=== PATIENT | female | born 1995 | race Caucasian/White ===

== ENCOUNTER 2020-06-12 19:15 | Outpatient (CLI) | payer MEDICAID ==
--- NOTE | 2020-06-13 00:22 | Ultrasound Report ---
PROCEDURE: OB F/U or Repeat INDICATIONS: EVAL SPINE OUTSIDE/PRIOR DATING DATA: Last menstrual period (LMP): 10/20/2019. LMP-based estimated date of delivery ([place]): 07/26/2020. First dating scan (date and location): 12/12/2019. Estimated date of delivery ([place]) from first dating scan: 07/17/2020. TECHNIQUE: Real-time scanning was performed of the fetus, with image documentation and biometric measurements. Endovaginal scanning: Not performed. COMPARISON: None. FINDINGS: General: A single living intrauterine gestation is present. Presentation: Cephalic Placenta: Placental position is posterior, without previa. Amniotic fluid index: 19.2 cm, normal for gestational age. heart rate: 157 beats per minute. Maternal cervical canal: 4.8 cm long; normal length is 2.5 cm or more. biometrics: Biparietal diameter: 9.4 cm, 38 weeks 3 days Head circumference: 33.3 cm, 38 weeks 0 days Abdominal circumference: 33.1 cm, 37 weeks 1 day Femur length: 6.8 cm, 34 weeks 6 days Estimated gestational age from initial scan: 35 weeks 0 days. Composite gestational age from present scan: 37 weeks 1 day Estimated weight and percentile: 3036 g, 90th percentile Measurement variability in biometric dating: +/- 10 days from 12-20 weeks gestation, +/- 2 weeks from 20-30 weeks gestation, +/- 3 weeks at 30 weeks gestation or more. Other: Limited evaluation of the spine was performed, which appeared normal. No meningocele is identified. IMPRESSION: 1. Single live intrauterine . Gestational age is consistent with dates. Estimated weig ht is at the 90th percentile for gestational age. 2. Limited anatomic evaluation of the spine is normal. No meningocele is seen. Reviewed by: Gary Mayer MD on 06/13/2020 12:20 AM PDT Approved by: Gary Mayer MD on 06/13/2020 12:20 AM PDT Station ID: [id number]
== END 2020-06-12 19:16 | disposition home or self-care (01) ==
LOC: DI 19:15
PROVIDERS: ATTEND Obstetrics & Gynecology
DX: Z36.89 Encounter for other specified antenatal screening (principal)
CPT/HCPCS: 76816

== ENCOUNTER 2020-07-03 07:00 | Outpatient (CLI) | payer MEDICAID ==
[2020-07-03 19:35] LABS: TRICHOMONAS VAGINALIS DNA NEGATIVE (NEGATIVE)
== END 2020-07-03 23:59 | disposition home or self-care (01) ==
LOC: LAB.R 07:00
PROVIDERS: ATTEND Nurse Practitioner Obstetrics & Gynecology
DX: Z36.85 Encounter for antenatal screening for Streptococcus B (principal)
CPT/HCPCS: 87491; 87591; 87661; 87797

== ENCOUNTER 2020-07-15 07:30 | Inpatient (IN) | payer MEDICAID ==
[2020-07-15] MEDS ORDERED: fentaNYL 100 MCG/2 ML VIAL IVP PRN (08:39)
[2020-07-15] MEDS ORDERED: LIDOCAINE-MPF 1% 30 ML VIAL ID PRN (08:39)
[2020-07-15] MEDS ORDERED: TRANEXAMIC ACID 1,000 MG in SODIUM CHLORIDE 0.9% 100ML 100 ML IV PRN (08:39)
[2020-07-15] MEDS ORDERED: CARBOPROST TROMETHAMINE 250 MCG/ML AMP IM PRN (08:39)
[2020-07-15] MEDS ORDERED: METHYLERGONOVINE 0.2 MG/ML VIAL IM PRN (08:39)
[2020-07-15] MEDS ORDERED: OXYTOCIN/SODIUM CHLORIDE 500 ML IV PRN (08:39)
[2020-07-15] MEDS ORDERED: SODIUM CHLORIDE FLUSH 0.9% 10 ML SYRINGE IVP PRN (08:39)
[2020-07-15] MEDS ORDERED: miSOPROStoL 200 MCG TABLET BC PRN (08:39)
[2020-07-15] MEDS ORDERED: OXYTOCIN 10 UNIT/ML VIAL IM PRN (08:39)
[2020-07-15] MEDS ORDERED: SODIUM CHLORIDE FLUSH 0.9% 10 ML SYRINGE IVP SCH (09:00)
--- NOTE | 2020-07-15 09:11 | HISTORY & PHYSICAL EXAMINATION ---
Admit History - Visit Reason Visit Reason: Contractions, Membranes rupture - : 3 Parity: 2 Premature: 1 Ectopic: 0 : 0 Care: positive: [facility] Risk/History: positive: None Complications This : positive: None Smoking Status: Never smoker - Mother's Labs Mother's Blood Type: positive: O Mother's RH: positive: Positive GBS: positive: Group B Step Negative Rubella Status: positive: Immune - Other Maternal History Other Maternal History: 25yo at 39.5 wks gestation who presents to Labor and Delivery for for complaints of contractions following a loss of clear fluid at 0440 Reports movement Denies VB care with [facility] which has been scant Complications *Total of 6 visits *Chlamydia- positive this . Treated. Negative ASH. Dating Criteria *8.6wk US OB Hx *G1: 35.2wks Boy. 2772g *G2: 38.2wks Girl. 2846g *G3: Current Medications * vitamin-daily *Ferrous sulfate- 325mg daily *Albuterol Nebulizer- PRN Allergies *Amoxicillin- mild (cough) *OtheroEvra- moderate (itchy) *Estradiol- moderate (itchy) Medical History *Asthma Surgical History *None Family History *Non contributory Social History *Non contributory Labs, Immunizations, and Findings Initial U/S: 12/12/2019 @ 8.6wks gestation dates Hx secondary to PPROM @ 35wks. second @ 37wks O pos/Rubella immune +chlamydia first trimester; ASH negative, 36wk neg Genetic testing: declined FAS: normal except spine views incomplete. Posterior placenta, no previa. 06/14/2020 f/u WNL. Glucola -pt refused TDAP declined GBS & GC/CT NEG x 3 HSV: denies Breast pump Rx MOD: Anticipate ; Expecting GIRL - [place]; desires epidural for pain management pp contraception: tubal ligation papers signed 05/20/2020 pap: needs pp SVE deferred r/t SROM status Nitrizine paper perfromed by RN- POSITIVE Vertex by BSUS EFW by dima's- 7# FHTs as above Assessment *Restate STATUS *Active Labor *SROM- clear * Heart Tones- Category I Plan *Admit to Labor and Delivery *Monitoring- Continuous *Comfort measures available- position changes, whirlpool tub, fentanyl, and epidural per maternal preference *Diet/Activity- per maternal preference *Anticipate Meds/Allgy - Allergies Allergies/Adverse Reactions: Allergies Allergy/AdvReac Type Severity Reaction Status Date / Time amoxicillin Allergy Unknown Verified 07/15/20 13:18 Review of Systems - All Other Systems All Other Systems: reports: Reviewed and negative Physical - Abdominal Exam Vital Signs: Temp Pulse Resp BP Pulse Ox 36.8 C 83 20 131/74 H 07/15/20 07:47 07/15/20 07:47 07/15/20 07:47 07/15/20 07:47 Contraction Frequency (min/apart): 2-4 Contraction Intensity: positive: Moderate Uterine Resting Tone: positive: Soft - Monitoring Heart Rate Baseline: 135 Strip Review: positive: Category I - Presentation Presentation: positive: Vertex - Vaginal Exam Membranes: positive: Membranes ruptured - Speculum Exam Findings: positive: Gross leak, Nitrazine Plan for Labor - Plan For Labor I expect patient to be DC'd or transferred within 96 hours.: Yes
[2020-07-15] MEDS: LACTATED RINGERS 1,000 ML IV SCH ×2 (09:23→12:18)
[2020-07-15 09:33] LABS: BASOPHILS % (AUTO) 0.2 %; EOSINOPHILS % (AUTO) 0.3 %; HGB - HEMOGLOBIN 10.9 g/dL (12.0-16.0); LYMPHOCYTES # (AUTO) 1.4 10^3/uL (1.5-3.5); MEAN CORPUSCULAR HEMOGLOBIN 30.9 pg (27.0-31.0); MEAN CORPUSCULAR HGB CONC 33.9 g/dL (32.0-36.0); MEAN CORPUSCULAR VOLUME 91.2 fL (81.0-99.0); MEAN PLATELET VOLUME 10.2 fL (7.9-10.8); MONOCYTES # (AUTO) 0.6 10^3/uL (0.0-1.0); MONOCYTES % (AUTO) 6.8 %; NEUTROPHILS # (AUTO) 6.8 10^3/uL (1.5-6.6); NEUTROPHILS % (AUTO) 76.3 %; PLT - PLATELET COUNT 196 10^3/uL (130-450); RED BLOOD COUNT 3.53 10^6/uL (4.20-5.40); RED CELL DISTRIBUTION WIDTH 12.2 % (12.0-15.0)
[2020-07-15] MEDS ORDERED: ROPIVACAINE 0.2% 200 MG/100 ML BAG EP ONE (09:47)
[2020-07-15] MEDS ORDERED: METOCLOPRAMIDE 10 MG/2 ML VIAL IVP PRN (10:12)
[2020-07-15] MEDS ORDERED: NALBUPHINE 10 MG/ML AMP IVP PRN (10:12)
[2020-07-15] MEDS ORDERED: diphenhydrAMINE INJ 50 MG/ML VIAL IVP PRN (10:12)
[2020-07-15] MEDS ORDERED: ROPIVACAINE 0.2% 200 MG/100 ML BAG EP PRN (10:12)
[2020-07-15] MEDS ORDERED: ONDANSETRON 4 MG/2 ML VIAL IVP PRN (10:12)
[2020-07-15] MEDS ORDERED: ePHEDrine 50 MG/ML VIAL IVP PRN (10:12)
[2020-07-15] MEDS ORDERED: NALOXONE 0.4 MG/ML VIAL IVP PRN (10:12)
--- NOTE | 2020-07-15 10:14 | ANESTHESIA ---
Pre-Anesthesia VS, & Labs - Diagnosis term labor, IUP - Procedure Labor epidural Vital Signs: Temp Pulse Resp BP Pulse Ox 36.8 C 83 20 131/74 H 07/15/20 07:47 07/15/20 07:47 07/15/20 07:47 07/15/20 07:47 Height: 5 ft 2 in Weight (kg): 79.832 kg Body Mass Index: 32.1 BMI Classification: Obese - NPO Last Food Intake: t/o morning - Is Patient ?: Yes - Lab Results Current Lab Results: Laboratory Tests 07/15/20 08:55: WBC 9.0, RBC 3.53 L, Hgb 10.9 L, Hct 32.2 L, MCV 91.2, MCH 30.9, MCHC 33.9, RDW 12.2, Plt Count 196, MPV 10.2, Neut # (Auto) 6.8 H, Lymph # (Auto) 1.4 L, [place] # (Auto) 0.6, Eos # (Auto) 0.0, Baso # (Auto) 0.0, Absolute Nucleated RBC 0.00, Nucleated RBC % 0.0 Lab results reviewed: Yes Fish Bones: 07/15/20 08:55 Home Medications and Allergies Active Medications Acetaminophen (Tylenol) 650 mg PO Q6H [facility] Carboprost Tromethamine (Hemabate) 250 mcg IM Q15M PRN PRN Reason: Step 4: Hemorrhage protocol Stop: 07/20/20 08:39 Fentanyl (Fentanyl) 50 mcg IVP Q1H PRN PRN Reason: PAIN Lactated Ringer's (Lr) 1,000 mls @ 150 mls/hr IV .Q6H40M [facility] Last Admin: 07/15/20 09:23 Dose: 999 mls/hr Documented by: Oxytocin/Sodium Chloride (Pitocin/Sodium Chloride) 500 mls @ 999 mls/hr IV PRN PRN; Protocol PRN Reason: POST- HEMORR PREVENTION Stop: 07/20/20 08:39 Tranexamic Acid 1,000 mg/ (Sodium Chloride) 110 mls @ 660 mls/hr IV .ONCE PRN PRN Reason: EBL >1200mL and within 3hr Stop: 07/20/20 08:39 Lidocaine HCl (Xylocaine-Mpf 1% Vial) 30 ml ID .ONCE PRN PRN Reason: PERINEAL REPAIR Stop: 07/20/20 08:39 Methylergonovine Maleate (Methergine Inj) 0.2 mg IM .ONCE PRN PRN Reason: Step 2: Hemorrhage protocol Stop: 07/20/20 08:39 Misoprostol (Cytotec) 800 mcg BC .ONCE PRN PRN Reason: Step 3: Hemorrhage protocol Stop: 07/20/20 08:39 Oxytocin (Pitocin) 10 unit IM .ONCE PRN PRN Reason: Step one: If no IV access Stop: 07/20/20 08:39 Sodium Chloride (Normal Saline Flush 0.9%) 10 ml IVP PRN PRN PRN Reason: NEEDED PER PROVIDER ORDERS Sodium Chloride (Normal Saline Flush 0.9%) 10 ml IVP 0100,0900,1700 VERONICA Anes History & Medical History - Anesthetic History Anesthesia Complications: reports: No previous complications Family history of Anesthesia Complications: Denies Family history of Malignant Hyperthermia: Denies - Medical History Cardiovascular: reports: None Pulmonary: reports: None Gastrointestinal: reports: GERD Urinary: reports: None Neuro: reports: None Musculoskeletal: reports: None Smoking Status: Never smoker History of Cancer?: No - Obstetrical History : 3 Parity: 2 Events: positive: None Complications: positive: None Exam General: Alert, Oriented x3, Cooperative Dental: WNL Mouth Openin Fingerbreadth Neck Mobility: Normal Mallampati classification: II Respiratory: No respiratory distress Cardiovascular: Regular rate Mental/Cognitive Status: Alert/Oriented X3, Normal for patient Plan Anesthesia Type: Epidural Consent for Procedure(s) Verified and Reviewed: Yes Code Status: Attempt Resuscitation ASA classification: 2-Mild systemic disease Is this case an emergency?: No
[2020-07-15] MEDS ORDERED: HYDROCORTISONE 1% CREAM 28 GM TUBE PR PRN (16:00)
[2020-07-15] MEDS ORDERED: WITCH HAZEL/GLYCERIN 1 PAD TOP PRN (16:00)
--- NOTE | 2020-07-15 16:09 | DELIVERY NOTE ---
Delivery Note - Labor Labor: positive: Spontaneous - Delivery Method Delivery Method: positive: Spontaneous vaginal delivery - Presentation Presentation: positive: Vertex, MADDY - right occiput anterior - Nuchal Cord Nuchal Cord: positive: None - Anesthetic Anesthetic Type: - Amniotic Fluid Description Amniotic Fluid Description: positive: Clear - Laceration Laceration: positive: None - Delivery Outcome Delivery Outcome: positive: Livebirth - [place]: positive: Placed in direct skin contact with mother, Stimulated, Procious used sex: positive: Female : 8 : 9 - Cord Cord: positive: 3 vessels - Placenta Placenta: positive: Intact, Spontaneous - Estimated Blood Loss Estimated Blood Loss (in cc): 150 - Post Delivery Events Post Delivery Events: positive: No post delivery events - Delivery Comments (Free Text/Narrative) Delivery Comments (Free Text/Narrative): Note: Labor: This 25 year old, , @39.5wks gestation by 8.6week Ultrasound, confirmed by LMP, presented this morning in early labor with report of gush of fluid at home that was clear. Nitrizine positive. Cervical exam was deferred and baby was confirmed vertex by BSUS. FHR pattern demonstrated 135 baseline in a Category I pattern. Normal labor course. Epidural placed upon maternal request. She progresses to c/c-1 at 1254 and labored down with her epidural. At 1421 pushing efforts began with coaching. : Normal of a 4145gm female , Ethyl, on 07/15/2020 @ 1535. Nuchal not present. The was placed on maternal abdomen, stimulated, dried and placed skin to skin. Apgars 8 at one minute and 9 at five minutes. The umbilical cord was allowed to stop pulsating at which time it was doubly clamped by CNM and cut by FOB. Pitocin administered via IV for hemostasis. Fundal massage and gentle cord traction applied for active third stage management. Cord blood was obtained. Placenta delivered spontaneously and intact at 1544. Three vessel cord. EBL 150mL. Fourth Stage: Uterine fundus firm and without excessive bleeding. The perineum, vagina, and cervix were inspected and found to be intact. Tissues well approximated. Skin to skin contact initiated. Mother desires to offer bottles of ebm exclusively. Family bonding well. Both mother and baby are in stable condition.
[2020-07-15] MEDS: ACETAMINOPHEN 325 MG TABLET PO SCH (18:47)
[2020-07-15] MEDS: IBUPROFEN 600 MG TABLET PO SCH (18:48)
[2020-07-16] MEDS: IBUPROFEN 600 MG TABLET PO SCH ×2 (06:49→15:21)
[2020-07-16] MEDS: ACETAMINOPHEN 325 MG TABLET PO SCH (12:00)
[2020-07-16 12:03] VITALS: BP 132/79
--- NOTE | 2020-07-16 12:05 | PROVIDER PROGRESS NOTE ---
Subjective - Prog Note Date Prog Note Date: 07/16/20 Prog Note Time: 07:00 - Subjective Pt reports feeling: Improved Subjective: This is a Final Progress Note S: Bonding well with baby. with use of pump and EBM only, but without difficulty. Pain well controlled with oral medications. Feeling like she was able to get a little rest last night. Partner supportive at the bedside. O: VSS Fundus firm Lochia light A: 25yo day 1 Status post EBM/Bottlefeeding Perineum intact P: Continue routine care and meds Evaluate for discharge home today Objective - Vital Signs/Intake & Output Vital Signs: Vital Signs x48h Temp Pulse Resp BP Pulse Ox 07/16/20 12:03 132/79 H 07/16/20 11:50 36.7 C 69 18 138/78 H 07/16/20 08:00 37.6 C H 78 18 128/72 98 Intake & Output: Intake & Output 07/13/20 07/14/20 07/15/20 07/16/20 23:59 23:59 23:59 23:59 Intake Total 1000 500 Balance 1000 500 - Lab Results Fish Bones: 07/15/20 08:55
--- NOTE | 2020-07-16 12:07 | DISCHARGE SUMMARY ---
Discharge Summary Admit Date: 07/15/20 Discharge Date: 07/16/20 Discharging Provider: Shelbi Boo CNTeto Code Status: Attempt Resuscitation Condition at Discharge: Good Discharge Disposition: 01 Home, Self Care - HPI History of Present Illness: Admit Date 07/15/2020 Discharge Date 07/16/2020 Diagnosis on Admission: 1. A 25yo at 41.2 week intrauterine 2. Early Active Labor 3. Scant Care Diagnosis on Discharge 1. A 25yo s/p spontaneous vaginal delivery on 07/15/2020 2. Normal recovery Brief History: She is a patient at [facility] who presented on 07/15/2020 with complaints of contractions following SROM at home with clear fluids. The patient was found to contract every 2 to 4 minutes and her cervical exam was deferred, but was confirmed vertex with BSUS. She progressed physiologically and spontaneously delivered a viable female named Arabella. Apgars were 8 and 9- and 1 and 5 minutes respectively. EBL 150mL. Her perineum was intact. She has been doing well in her course. She is ambulating and tolerating a regular diet. She is urinating without difficulty and her lochia is normal. Her pain is well controlled with oral medications. She will be discharged home today on day #1 with prescriptions for ibuprofen and POPs- which she has been instructed to take after 4wks , and to wait one week for intercourse to ensure effectiveness. She intends to follow up with Midwifery at [facility] in 1, 3, and 6 weeks for routine visit. She is aware that she is due for a PAP ; discussed importance of follow up, if able. She has been given precautions to call if she has any worsening fevers, chills, abdominal pain, increased bleeding or foul smelling vaginal lochia. - ALLERGIES Allergies/Adverse Reactions: Allergies Allergy/AdvReac Type Severity Reaction Status Date / Time amoxicillin Allergy Unknown Verified 07/15/20 13:18 - MEDICATIONS Home Medications: Ambulatory Orders Medication Instructions Recorded Confirmed Ibuprofen [Motrin] 600 mg PO Q6H tablet 07/16/20 - LABS Result Diagrams: 07/15/20 08:55
--- NOTE | 2020-07-16 12:11 | Discharge Plan ---
Discharge Plan Problem Reviewed?: Yes Disposition: Home, Self Care Condition: Good Diet: Regular Activity Restrictions: No Restrictions Shower Restrictions: No Driving Restrictions: No Weight Bearing: Full Weight Plan of Treatment: Follow up with midwifery at 1, 3, and 6wks You may start taking control pills at 4wks , Rx sent to your pharmacy Continue with Tylenol and Ibuprofen PRN Please follow up for your PAP smear, which is due No Smoking: If you smoke, Please STOP! Call for help. Follow-up with: Shelbi Boo ARNP [Provider Admit Priv/Credential] -
--- NOTE | 2020-07-16 18:12 | Labor Flowsheet ---
Labor Flowsheet Datetime Report Generated by CPN: 07/16/2020 18:12 Datetime: 07/16/2020 12:02 VITAL SIGNS NBP Sys/Julita/Mean (mmHg): 132 : 79 : 91 Pulse: 70 Datetime: 07/15/2020 18:32 Respirations: 18 SpO2 (%): 97 Datetime: 07/15/2020 16:40 Membranes Ruptured Date/Time: 07/15/2020 04:40 Membranes Rupture Method: Spontaneous Amniotic Fluid Color: Clear Amniotic Fluid Amount: Moderate Amniotic Fluid Odor: Normal Datetime: 07/15/2020 16:31 Temperature (C): 37.2 Temperature Route: Oral Datetime: 07/15/2020 15:54 MEDICATIONS Pitocin (milliunits): Discontinued Medication Comments: IV infiltrated, all infusions discontinued Datetime: 07/15/2020 15:45 Stage of : Recovery Datetime: 07/15/2020 15:34 UTERINE ACTIVITY Monitor Mode: External Quality: Moderate Pattern: Normal: <= 5 Contractions in 10 Minutes Resting Tone (Palpate): Relaxed Contraction Comments: unable to determine ctx d/t pt pusing and movement Category: Category II Comments: unable to determine baseline Datetime: 07/15/2020 15:31 LaborFlag: Antepartum Datetime: 07/15/2020 15:15 ASSESSMENT A Monitor Mode: Telemetry FHR Baseline Rate : 135 Variability: Moderate 6-25 bpm Accelerations: 15X15 Decelerations: Late; Variable Datetime: 07/15/2020 14:45 Frequency (min): 1-3 Duration (sec): 50-80 Datetime: 07/15/2020 14:40 I/O Interventions: Omalley Discontinued Patient Care Comments: 350 Datetime: 07/15/2020 14:21 STAGE 2 Pushing: Coached on Pushing Pushing Position: Pushing with Contractions Pushing Progress: Descent with Pushing Datetime: 07/15/2020 14:20 Station: 0 Exam by: CNM Rajeev Datetime: 07/15/2020 14:05 Antiemetics/Antacids: Zofran (mg) @ 4 Datetime: 07/15/2020 13:47 Monitor Interventions for UA: Latta Adjusted Datetime: 07/15/2020 13:38 Monitor Interventions for FHR: Ultrasound Adjusted Datetime: 07/15/2020 13:15 FHR Baseline Changes: No Baseline Change Datetime: 07/15/2020 12:54 VAGINAL EXAM Dilatation (cm): 10.0 Effacement (%): 100 Datetime: 07/15/2020 12:52 Membrane Comments: CNM ruptured forebag Datetime: 07/15/2020 12:51 Patient Position/Activity: HOB Lowered Datetime: 07/15/2020 12:18 PATIENT CARE IV/Blood Work: IV Infusing per Order; New IV Bag Hung; IV Bag Number @ 2 Datetime: 07/15/2020 10:40 Vital Sign Comments: manual BP Datetime: 07/15/2020 10:05 Epidural Procedure Other: Pump Started Datetime: 07/15/2020 09:57 Epidural Procedure: Loading Dose Datetime: 07/15/2020 09:49 Magnesium/Antihypertensives: Ephedrine IV (mg) @ 10 Datetime: 07/15/2020 09:38 PROCEDURE TIME OUT Procedure Verify: Correct Patient Identity; Accurate Procedure Consent Form; Agreement on Procedure to be Done; Correct Patient Position ANESTHESIA Anesthesia Plans: Epidural Epidural Positioning: Sitting Anesthesia Comments: provider @ bedside Datetime: 07/15/2020 09:32 COMMUNICATION Communication: Call/Page Placed to Provider Provider Notified (Name): 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
== END 2020-07-16 16:10 | disposition home or self-care (01) | DRG 806 ==
LOC: WFO 07:30 → FBP 07:34 → WFO 08:38 → FBP 08:39
PROVIDERS: ADMIT Advanced Practice Midwife; ATTEND Advanced Practice Midwife
PROC: 10E0XZZ Delivery of Products of Conception, External Approach (ICD-10-PCS; principal; 2020-07-15)
DX: O48.0 Post-term pregnancy (principal); O98.32 Other infections with a predominantly sexual mode of transmission complicating childbirth; A56.8 Sexually transmitted chlamydial infection of other sites; Z37.0 Single live birth; Z3A.41 41 weeks gestation of pregnancy; Z87.59 Personal history of other complications of pregnancy, childbirth and the puerperium
CPT/HCPCS: 85025; 86850; 86900; 86901; A9270; J7120

== ENCOUNTER 2020-09-25 11:56 | Outpatient (CLI) | payer MEDICAID ==
[2020-09-25 12:34] LABS: BASOPHILS % (AUTO) 0.3 %; EOSINOPHILS % (AUTO) 0.6 %; HGB - HEMOGLOBIN 12.5 g/dL (12.0-16.0); LYMPHOCYTES # (AUTO) 2.1 10^3/uL (1.5-3.5); MEAN CORPUSCULAR HEMOGLOBIN 29.6 pg (27.0-31.0); MEAN CORPUSCULAR HGB CONC 32.4 g/dL (32.0-36.0); MEAN CORPUSCULAR VOLUME 91.5 fL (81.0-99.0); MEAN PLATELET VOLUME 8.6 fL (7.9-10.8); MONOCYTES # (AUTO) 0.5 10^3/uL (0.0-1.0); MONOCYTES % (AUTO) 8.2 %; NEUTROPHILS # (AUTO) 3.6 10^3/uL (1.5-6.6); NEUTROPHILS % (AUTO) 57.6 %; PLT - PLATELET COUNT 280 10^3/uL (130-450); RED BLOOD COUNT 4.22 10^6/uL (4.20-5.40); RED CELL DISTRIBUTION WIDTH 13.1 % (12.0-15.0); WHITE BLOOD COUNT 6.3 x10^3/uL (4.8-10.8)
== END 2020-09-25 11:57 | disposition home or self-care (01) ==
LOC: LAB 11:56
PROVIDERS: ATTEND Obstetrics & Gynecology
DX: Z01.818 Encounter for other preprocedural examination (principal); Z20.828 Contact with and (suspected) exposure to other viral communicable diseases
CPT/HCPCS: 36415; 85025

== ENCOUNTER 2020-10-01 11:51 | Day surgery (SDC) | payer MEDICAID ==
[2020-10-01] MEDS ORDERED: ACETAMINOPHEN 1,000 MG/100 ML 100 ML IV ONE ×2 (12:11→13:04)
[2020-10-01] MEDS ORDERED: CELECOXIB 100 MG CAPSULE PO ONE (12:11)
[2020-10-01] MEDS ORDERED: GABAPENTIN 400 MG CAPSULE ONE (12:12)
--- NOTE | 2020-10-01 12:30 | ANESTHESIA ---
Pre-Anesthesia VS, & Labs - Diagnosis desires sterilization - Procedure laparoscopic salpingectomy Height: 5 ft 2 in Weight (kg): 76 kg Body Mass Index: 30.6 BMI Classification: Obese - NPO >8 hours - Is Patient ?: No - Lab Results Lab results reviewed: Yes Home Medications and Allergies Home Medications: Ambulatory Orders No Known Home Medications 09/22/20 No Known Home Medications 09/22/20 Allergies/Adverse Reactions: Allergies Allergy/AdvReac Type Severity Reaction Status Date / Time amoxicillin Allergy Unknown Verified 07/15/20 13:18 Anes History & Medical History - Anesthetic History Anesthesia Complications: reports: No previous complications Family history of Anesthesia Complications: Denies Family history of Malignant Hyperthermia: Denies - Medical History Cardiovascular: reports: None Pulmonary: reports: Asthma Gastrointestinal: reports: None Urinary: reports: None Neuro: reports: None Musculoskeletal: reports: None Endocrine/Autoimmune: reports: None Skin: reports: None Smoking Status: Never smoker Exam General: Alert, Oriented x3, Cooperative, No acute distress Dental: WNL Mouth Openin Fingerbreadth Neck Mobility: Normal Mallampati classification: I Respiratory: Lungs clear, Normal breath sounds, No respiratory distress, No accessory muscle use Cardiovascular: Regular rate, Normal S1, Normal S2, No murmurs Plan Anesthesia Type: General Consent for Procedure(s) Verified and Reviewed: Yes Code Status: Attempt Resuscitation ASA classification: 2-Mild systemic disease Is this case an emergency?: No
[2020-10-01] MEDS ORDERED: ePHEDrine 50 MG/ML VIAL IVP PRN (12:32)
[2020-10-01] MEDS ORDERED: HYDROmorphone 0.5 MG/0.5 ML SYRINGE IVP PRN (12:32)
[2020-10-01] MEDS ORDERED: fentaNYL 100 MCG/2 ML VIAL IVP PRN (12:32)
[2020-10-01] MEDS ORDERED: ATROPINE ABBOJECT 1 MG/10 ML SYRINGE IVP PRN (12:32)
[2020-10-01] MEDS ORDERED: METOCLOPRAMIDE 10 MG/2 ML VIAL IVP PRN (12:32)
[2020-10-01] MEDS ORDERED: NALOXONE 0.4 MG/ML VIAL IVP PRN (12:32)
[2020-10-01] MEDS ORDERED: MORPHINE 2 MG/ML CARPUJECT IVP PRN (12:32)
[2020-10-01] MEDS ORDERED: ONDANSETRON 4 MG/2 ML VIAL IVP PRN (12:32)
[2020-10-01 12:33] LABS: HCG UR QUAL NEGATIVE
[2020-10-01] MEDS ORDERED: BUPIVACAINE 0.25%-EPI 1:200000 PF 30 ML VIAL ONE (12:46)
[2020-10-01] MEDS ORDERED: LACTATED RINGERS 1,000 ML IV ONE ×2 (12:49→14:26)
[2020-10-01] MEDS ORDERED: LACTATED RINGERS 1,000 ML IV SCH (13:00)
[2020-10-01] MEDS ORDERED: DEXAMETHASONE 4 MG/ML VIAL IVP ONE (13:04)
[2020-10-01] MEDS ORDERED: GLYCOPYRROLATE 1 MG/5 ML VIAL IVP ONE (13:04)
[2020-10-01] MEDS ORDERED: LIDOCAINE-MPF 2% 5 ML VIAL IM ONE (13:04)
[2020-10-01] MEDS ORDERED: fentaNYL 100 MCG/2 ML VIAL IVP ONE (13:04)
[2020-10-01] MEDS ORDERED: ROCURONIUM 50 MG/5 ML VIAL IVP ONE (13:04)
[2020-10-01] MEDS ORDERED: MIDAZOLAM 2 MG/2 ML VIAL IVP ONE (13:04)
[2020-10-01] MEDS ORDERED: ONDANSETRON 4 MG/2 ML VIAL IVP ONE (13:04)
[2020-10-01] MEDS ORDERED: NEOSTIGMINE 1 MG/1 ML 10 ML MDV IVP ONE (13:04)
[2020-10-01] MEDS ORDERED: PROPOFOL 200 MG/20 ML VIAL IVP ONE (13:04)
[2020-10-01] MEDS ORDERED: BUPIVACAINE 0.25%-EPI 1:200000 PF 30 ML VIAL SUBQ ONE ×2 (13:33)
--- NOTE | 2020-10-01 14:27 | OPERATIVE REPORT ---
Operative Report - General Procedure Date: 10/01/20 Planned Procedure: Laparoscopic bilateral salpingectomy and pap smear Pre-Op Diagnosis: Desires sterilization, cervical cancer screening Procedure Performed: Laparoscopic bilateral salpingectomy Post Op Diagnosis: Same - Procedure Note Primary Surgeon: Fidelina Moreno MD Secondary Surgeon: Houston Peters MD Anesthesia Provider: Heather Graves CRNA Pathology: Bilateral fallopian tubes sent together as one specimen. IV Fluids (mL): 900 Estimated Blood Loss (mL): 5 Urine Output (mL): 0 (voided prior to procedure) Indications: Patient is a 25-year-old G3, P3 here for bilateral tubal ligation. Patient is about 11 weeks status post of her third child. She is due for Pap smear and is interested in having it done under anesthesia. She has no significant past medical history. She has no significant past surgical history She is confident that she has completed her childbearing. She is aware that tubal ligation is irreversible. Was counseled on sterilization during the and at her follow-up. She is confident that she wants to pursue sterilization.Signed [facility] consent forms on 05/20/2020. Findings: Normal appearing uterus, tubes, and ovaries. Normal liver edge and appendix. Normal scan of the abdomen. Complications: None - Other Other Information/Narrative: Risks benefits and alternatives of the procedure were reviewed. Consent was again confirmed. Patient was brought to the operating room and underwent gene ral anesthesia. She was placed in dorsal lithotomy position with legs resting in yellowfin stirrups. SCDs were in place and activated. Prior to prepping, a speculum was placed and pap smear was collected. Intruments were then removed from the vagina. She was then prepped and draped in the usual sterile fashion. Surgical timeout was performed. Bimanual exam was performed. Sterile speculum was placed. The cervix was visualized. Uterus sounded to 9 cm. The Humi uterine manipulator was placed. The base of the umbilicus was anesthetized with intradermal injection of 0.25% Marcaine. A 5 mm skin incision was made with a scalpel. A 5 mm blunt trocar was inserted under direct visualization using Fanchimpiport. Once the port was confirmed to be placed intraperitoneally, the abdomen was insufflated to 15 mmHg with CO2 gas Exploration of the abdomen and pelvis was confirmed that no injury was sustained with placement of the trocar. Two additional 5 mm ports were placed in the right and left lower quadrants, taking care to avoid the epigastric arteries, while under direct visualization via laparoscopic guidance. The abdomen was explored with the laparoscope, with findings as noted. The left fallopian tube was grasped and elevated at the fimbriated end. The underlying mesosalpinx was sealed and resected to the insertion point on the uterine cornua using the Ligasure device. The tube was then sealed and transected at the insertion point at the cornua. The tube was removed from the pelvis through the lateral port. The procedure was repeated on the right side. Good hemostasis was noted. The abdomen was partially desufflated. Pedicles were observed under decreased pressure and good hemostasis was again confirmed. Abdomen was then completely desufflated. All instruments were removed from the abdomen. Skin was closed with interrupted subcuticular stitches using 4-0 Monocryl. Dermabond was applied over the suture sites. The Humi manipulator was removed from the uterus. Again, good hemostasis was noted. The final sponge needle and instrument counts were correct at completion of the procedure patient was awakened taken to the postanesthesia care unit in stable c ondition. Dr. Peters assisted with suturing and retraction.
--- NOTE | 2020-10-01 15:15 | ANESTHESIA POST OP EVALUATION ---
Anesthesia Post Eval - Post Anesthesia Eval Vitals: Last Vital Signs Temp 36.1 C L 10/01/20 14:44 Pulse 57 L 10/01/20 14:44 Resp 10 L 10/01/20 14:44 BP 110/63 10/01/20 14:44 Pulse Ox 100 10/01/20 14:44 CV Function Including HR & BP: positive: Stable Pain Control: positive: Satisfactory Nausea & Vomiting: positive: Negative Mental Status: positive: Baseline Respiratory Status: Airway Patent Hydration Status: Satisfactory Anesthesia Complications: positive: None (Awake, taking PO, slightly sore but no complaints.)
[2020-10-01] MEDS ORDERED: oxyCODONE 5 MG TABLET PO ONE (15:28)
[2020-10-01] MEDS ORDERED: oxyCODONE 5 MG TABLET ONE (15:39)
[2020-10-01 15:55] VITALS: BP 96/59
== END 2020-10-01 11:52 | disposition home or self-care (01) ==
LOC: SDS 11:51
PROVIDERS: ATTEND Obstetrics & Gynecology
PROC: 0UT74ZZ Resection of Bilateral Fallopian Tubes, Percutaneous Endoscopic Approach (ICD-10-PCS; principal; 2020-10-01 12:45)
DX: Z30.2 Encounter for sterilization (principal); E66.9 Obesity, unspecified; Z68.30 Body mass index [BMI] 30.0-30.9, adult; J45.998 Other asthma
CPT/HCPCS: 58661; 81025; A9270; J0131; J7120

== ENCOUNTER 2021-02-01 07:00 | Outpatient (CLI) | payer MEDICAID ==
--- NOTE | 2021-02-01 17:07 | XRAY Report ---
PROCEDURE: Foot 2 View RT INDICATIONS: R FOOT PX TECHNIQUE: 2 views of the foot were acquired. COMPARISON: None FINDINGS: Bones: No fractures or dislocations. No suspicious bony lesions. Soft tissues: No tibiotalar joint effusion. Achilles tendon appears normal. IMPRESSION: Normal right foot. No prior trauma found. Reviewed by: Bassam Cardenas MD on 02/01/2021 5:06 PM PDT Approved by: Bassam Cardenas MD on 02/01/2021 5:06 PM PDT Station ID: [id number]
== END 2021-02-01 23:59 | disposition home or self-care (01) ==
LOC: DI.N 07:00
PROVIDERS: ATTEND Nurse Practitioner
DX: M79.671 Pain in right foot (principal)